=== PATIENT | female | born 1995 | race Caucasian/White ===

== ENCOUNTER 2025-04-16 22:04 | Emergency (ER) | payer OTHER, SELFPAY ==
--- OUTSIDE RECORDS SUMMARY | 2025-04-11 08:40 | XMS_ITS | Encounter Summary ---
Author Organization [employer] Address [address] [address] Care Team Providers Care Caustic Room Operator Name Role Phone Unavailable Primary Care Provider Unavailabl e Reason for Visit * Reason Comments Cough Pharyngitis Encounter Details Date Type Department Care Team (Late st Contact Info) Description 04/11/2025 8:40 AM CDT Office Visit [facility] [address] [place] [phone] [place] [address] [address] [place], [place] [id number] Sore throat; Acute laryngitis; Cough, unspecified type; Nasal congestion Social History Tobacco Use Types Packs/Day Years Used Date Smoking Tobacco: Never Passive Smoke Exposure: Never Smokeless Tobacco: Never Comments No Sex and Gender Information Value Date Recorded Sex Assigned at Not on file Legal Sex Female 8:47 PM CDT Gender Identity Not on file Sexual Orientation Not on file documented as of this encounter Last Filed Vital Signs Vital Sign Reading Time Taken Comments Blood Pressure 103/70 04/11/2025 8:09 AM CDT Pulse 89 04/11/2025 8:09 AM CDT Temperature 36.8 C (98.2 F) 04/11/2025 8:09 AM CDT Respiratory Rate 16 04/11/2025 8:09 AM CDT Oxygen Saturation 96% 04/11/2025 8:09 AM CDT Inhaled Oxygen Concentration - - Weight - - Height - - Body Mass Index - - documented in this encounter Progress Notes * Kiya Burris MD - 04/11/2025 8:40 AM CDT Ana Maria Pascual is a 29 y.o.female presents to the Urgent Care for Cough and Pharyngitis . Cough, sore throat, chest congestion and loss of voice for the past week. Fevers in the beginning. Past Medical History[1] Subject 29 years old female presented today to clinic with concern about a week ago she did had some sore throat and fever for 1 day, fever broke no fever after that, she has runny nose cough congestion she lost her voice. Her cough and postnasal drip are much worse at night, medication she use Mucinex Sudafed icry-ssm-[id number] with no help. 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 Both ear clear, nose mucosa inflamed nasal turbinates bulging Oral cavity pharynx uvula with except postnasal drip there is no petechiae no exudate no redness issign and symptom of inflammation, no submandibular tenderness Neck no enlarged lymph Lungs are clear Cardiac S1-S2 regular Abdomen, extremity, skin she deny any problem any rash WBC with diff pretty within normal her MCH MCHC RDW almost the same as she has a month ago No change Assessment Upper respiratory viral syndrome Viral pharyngitis viral laryngitis Plan Supportive care 1. Rest voice as much as possible no whisper even Flonase for nasal congestion Tessalon Perles for cough worse additional symptom concern question back to the clinic otherwise follow-up protein she agree or see primary doctor [1] No past medical history on file. documented in this encounter Nursing Notes * Lisa Payton RN - 04/11/2025 8:40 AM CDT Ana Maria Pascual is a 29 y.o.female presents to the Urgent Care for Cough and Pharyngitis . Cough, sore throat, chest congestion and loss of voice for the past week. Fevers in the beginning. documented in this encounter Plan of Treatment Not on file documented as of this encounter Visit Diagnoses Diagnosis Sore throat Acute pharyngitis Acute laryngitis Acute laryngitis, without mention of obstruction Cough, unspecified type Nasal congestion Other diseases of nasal cavity and sinuses documented in this encounter
--- OUTSIDE RECORDS SUMMARY | 2025-04-11 09:10 | XMS_ITS | Encounter Summary ---
Author Organization [employer] Address [address] [place] [address] Care Team Providers Care Executive Assistant To President Name Role Phone Unavailable Primary Care Provider Unavailabl e Encounter Details Date Type Department Care Team (Late st Contact Info) Description 04/11/2025 9:10 AM CDT Lab Visit [facility] [address] [place] [phone] Sore throat Social History Tobacco Use Types Packs/Day Years Used Date Smoking Tobacco: Never Passive Smoke Exposure: Never Smokeless Tobacco: Never Comments No Sex and Gender Information Value Date Recorded Sex Assigned at Not on file Legal Sex Female 8:47 PM CDT Gender Identity Not on file Sexual Orientation Not on file documented as of this encounter Plan of Treatment Not on file documented as of this encounter Procedures Procedure Name Priority Date/Time Associated Diagnosis Comments CBC AND DIFFERENTIAL PANEL STAT 04/11/2025 8:44 AM CDT Sore throat COMPLETE BLOOD COUNT-W/DIFF STAT 04/11/2025 8:44 AM CDT Sore throat documented in this encounter Results * (ABNORMAL) Complete Blood Count-W/Diff (04/11/2025 8:44 AM CDT) [facility] WBC 7.7 3.5 - 10.5 x10(9)/L 04/11/2025 8:50 AM CDT [facility] RBC 4.17 3.90 - 5.03 x10(12)/L 04/11/2025 8:50 AM [facility] Hemoglobin 14.3 12.0 - 15.5 g/dL 04/11/2025 8:50 AM [facility] HCT 40.3 34.9 - 44.5 % 04/11/2025 8:50 AM [facility] MCV 96.6 80.0 - 100.0 fL 04/11/2025 8:50 AM [facility] MCH 34.3(H) 27.6 - 33.3 pg 04/11/2025 8:50 AM [facility] MCHC 35.5(H) 31.5 - 35.2 g/dL 04/11/2025 8:50 AM [facility] RDW 11.2(L) 11.9 - 15.5 % 04/11/2025 8:50 AM [facility] Platelets 212 150 - 450 x10(9)/L 04/11/2025 8:50 AM [facility] Neutrophil Absolute 5.6 1.7 - 7.0 10(9)/L 04/11/2025 8:50 AM [facility] Lymphocyte Absolute 1.4 1.0 - 4.8 10(9)/L 04/11/2025 8:50 AM [facility] Monocyte Absolute 0.6 0.2 - 0.9 10(9)/L 04/11/2025 8:50 AM [facility] Eosinophil Absolute 0.1 0.0 - 0.5 10(9)/L 04/11/2025 8:50 AM [facility] Basophil Absolute 0.0 0.0 - 0.3 10(9)/L 04/11/2025 8:50 AM [facility] Immature Granulocyte % 0.0 0.0 - 0.5 % 04/11/2025 8:50 AM [facility] Blood Venipuncture / Unknown 04/11/2025 8:44 AM CDT 04/11/2025 8:44 AM T us Kiya Burris MD LAB_1 Final Result [facility] CLIA: [id number] [address] [place] [address], [facility] documented in this encounter Visit Diagnoses Diagnosis Sore throat Acute pharyngitis documented in this encounter
[2025-04-16 22:12] VITALS: BP 120/81; PULSE 83; RESP 16; TEMP 36.8; O2SAT 99; BMI 19.7
--- NOTE | 2025-04-16 22:12 | CRLHL7_ITS ---
For Patients: As a result of the Century Cures Act, medical imaging exams and procedure reports are released immediately into your electronic medical record. You may view this report before your referring provider. If you have questions, please contact your health care provider. INDICATION: Chest pain, cough. TECHNIQUE: Chest 2 views. COMPARISON: None. FINDINGS: Cardiovascular and mediastinum: Heart size and vasculature are normal in caliber and appearance. Lungs and pleural spaces: No focal consolidation, pleural effusion, or pneumothorax. Bones and soft tissues: Scoliotic curvature of the spine. Otherwise, unremarkable for age. IMPRESSION: No evidence of an acute pulmonary process. Dictated by Rubio Correa MD @ 04/16/2025 11:30:15 PM (Electronically Signed)
--- NOTE | 2025-04-16 22:12 | ED_ITS ---
HPI - SOB/Dyspnea General Time Seen by Provider: 22:13 Date Seen: 04/16/25 Chief Complaint: Cough Stated Complaint: cough/difficulty breathing Time Seen by Provider: 04/16/25 22:12 Source: patient and other (Significant other) Mode of arrival: ambulatory Limitations: no limitations History of Present Illness HPI Narrative: Ana Maria is a previously healthy 29-year-old female who presents the emergency department for evaluation of cough. Patient reports that she has been sick for the past 2 weeks with cough and cold-like symptoms. Patient reports she was seen on Monday it was diagnosed with laryngitis. Patient reports that she recently got her voice back however now reports some worsening symptoms with cough with occasional sputum production, and difficulty sleeping due to the cough. Patient also complains of some shortness of breath due to the cough. Patient denies any fever, chills, chest pain, abdominal pain, no sick contacts. Patient states he has you been taking [id number] medications including Mucinex, Sudafed NyQuil, Tessalon Perles with no improvement of symptoms. Related Data Home Medications ?Medication ?Instructions ?Recorded ?Confirmed No Known Home Medications 04/16/2511/05 Allergies Allergy/AdvReac Type Severity Reaction Status Date / Time No Known Drug Allergies Allergy Verified 04/16/25 22:15 Review of Systems Narrative: Past medical history, past surgical history, medications, allergies, family history, and social history were reviewed with the patient. No additional pertinent items. A medically appropriate review of systems was performed with pertinent positives and negatives noted in HPI, all other systems negative. [facility] Social History Smoking Status: Never smoker Second hand tobacco smoke exposure: No How often do you have a drink containing alcohol: never AUDIT-C Alcohol total score: 0 Non-prescribed substance use: denies use Exam Narrative: Exam Narrative: General: Afebrile, no acute distress HEENT: Normocephalic, atraumatic, conjunctiva normal. MMM Neck: non-tender, supple Cardio: regular rate. regular rhythm Resp: Normal work of breathing, no respiratory distress, lungs clear bilaterally, no wheezing, rhonchi, rales Chest/Back: no visual signs of trauma, no midline tenderness, no CVA tenderness Abdomen: soft, non distension, no tenderness, no peritoneal signs Neuro: alert and fully oriented. CN II-XII grossly intact. Grossly normal strength and sensation in all extremities. MSK: no deformities. Normal range of motion Integumentary/Skin: no rash visualized, normal color Psych: normal affect, normal behavior Const: Vital Signs, click to edit/add: Vital Signs - 24 hr 04/16/25 22:12 Temperature 98.3 F Pulse Rate [Pulse Oximeter] 83 Respiratory Rate 16 Blood Pressure [Ri ght Upper Arm] 120/81 Pulse Oximetry 99 Oxygen Delivery Me thod Room Air Course Vital Signs Vital signs: Initial Vital Signs Temperature 98.3 F 04/16/25 22:12 Temperature Source Temporal Artery Scan 04/16/25 22:12 Pulse Rate 83 04/16/25 22:12 Respiratory Rate 16 04/16/25 22:12 Respiratory Effort Normal, Spontaneous, Non-Labored 04/16/25 22:12 Respiratory Depth Normal 04/16/25 22:12 Respiratory Pattern Normal 04/16/25 22:12 Blood Pressure 120/81 04/16/25 22:12 Blood Pressure Mean 94 04/16/25 22:12 Blood Pressure Position Sitting 04/16/25 22:12 Pulse Oximetry 99 04/16/25 22:12 Oxygen Delivery Method Room Air 04/16/25 22:12 Vital Signs Temperature 98.3 F 04/16/25 22:12 Pulse Rate 83 04/16/25 22:12 Respiratory Rate 16 04/16/25 22:12 Blood Pressure 120/81 04/16/25 22:12 Pulse Oximetry 99 04/16/25 22:12 Oxygen Delivery Method Room Air 04/16/25 22:12 Temperature 98.3 F 04/16/25 22:12 Pulse Rate 83 04/16/25 22:12 Respiratory Rate 16 04/16/25 22:12 Blood Pressure 120/81 04/16/25 22:12 Pulse Oximetry 99 04/16/25 22:12 Oxygen Delivery Method Room Air 04/16/25 22:12 Medications Administered Medications: Discontinued Medications Generic Name Dose Route Start Last Admin Trade Name Freq PRN Reason Stop Dose Admin Albuterol/Ipratropium 1 neb 04/16/25 23:25 04/16/25 23:35 Iprat-Albut 0.5-2.5 Mg/3 Ml Neb IH 04/16/25 23:26 1 neb ONCE ONE Administration Dexamethasone 10 mg 04/16/25 23:26 04/16/25 23:35 Dexamethasone 10 Mg/Ml Pf PO 04/16/25 23:27 10 mg ONCE ONE Administration Guaifenesin/Codeine Phosphate 5 ml 04/16/25 23:25 04/16/25 23:38 Codeine/Guaifenesin 20-200mg/10 Ml Soln PO 04/16/25 23:26 Not Given ONCE ONE Guaifenesin/Codeine Phosphate 10 ml 04/16/25 23:36 04/16/25 23:39 Codeine/Guaifenesin 20-200mg/10 Ml Soln PO 04/16/25 23:37 10 ml ONCE ONE Administration MDM - SOB/Dyspnea MDM Narrative Medical decision making narrative: Ana Maria is a previously healthy 29-year-old female who presents the emergency department for evaluation of cough. Upon arrival patient is nontoxic appearing, afebrile, in distress secondary to feeling unwell. Patient hemodynamically stable vital signs within normal limits. Patient with no tachypnea, no tac hycardia, no hypoxia, no respiratory distress. Differential diagnosis includes but is not limited to viral illness versus COVID/influenza/RSV versus pneumonia versus bronchitis among others. Viral testing negative for COVID/influenza/RSV. I personally reviewed interpreted chest x-ray which is unremarkable with no focal infiltrate, pleural effusion, pneumothorax. I suspect likely viral illness. No emergent indication for antibiotics or admission at this time. Patient was treated with DuoNeb, dexamethasone, guaifenesin codeine in the ED. patient and significant other feel comfortable with discharge home with continued supportive care, close outpatient follow-up, strict return precautions discussed. Patient understands and agrees the plan. Medical Records Attestation: I reviewed the patient's medical records. Lab Data Labs: Lab Results 04/16/25 Range/Units 22:15 SARS-CoV-2 (PCR) Negative SARS-CoV-2 (Negative) Influenza Type A (PCR) Negative PCR FLU A (Negative) Influenza Type B (PCR) Negative PCR FLU B (Negative) RSV (PCR) Negative PCR RSV (Negative) Discharge Plan Discharge Clinical Impression: Cough Patient Disposition: Home, Self-Care Condition: Improved Additional Instructions: Please follow-up with your primary care provider in the next 5-7 days if no improvement of symptoms. Please rest, drink plenty of fluids. Please alternate Tylenol and ibuprofen as needed for fever, pain. You may continue use [id number] cough and cold medications to help with symptoms. Please return to the emergency department if you develop persistent high fever, difficulty breathing, new or worsening symptoms. It was a pleasure to take care of you today. We hope you feel better soon. Prescriptions: No Action No Known Home Medications Follow Up/Referrals: Cecily Mitchell CNM [Primary Care Provider, INSURANCE BUSINESS ANALYST] Stand Alone Forms: [employer] Info Instructions
[2025-04-16 23:10] LABS: PCR FLU A Negative PCR FLU A (Negative); PCR FLU B Negative PCR FLU B (Negative); PCR RSV Negative PCR RSV (Negative); SARS PCR* Negative SARS-CoV-2 (Negative)
--- OUTSIDE RECORDS SUMMARY | 2025-04-16 23:33 | XMS_ITS | Clinical Summary ---
Author Organization [email or web address] Address [address] [place] [id number] Care Team Providers Care Manager Of Disaster Recovery Name Role Phone Pcp, No Primary Care Provider Unavailabl e Allergies Active Allergy Reactions Criticality Noted Date Comments Iodine Rash 09/02/2019 Medications cholecalciferol (Vitamin D) 1,000 unit capsule Take 1 Capsule (1,000 units) by mouth once daily. 0 2 Active ascorbic acid, vitamin C, (VITAMIN C) 1,000 mg tablet Take 1 Tablet (1,000 mg) by mouth once daily. 0 2 Active tretinoin 0.1 % creamIndication s:Acne, unspecified acne type at bedtime. 45 g 3 Active terconazole (TERAZOL-7) 0.4 % vaginal creamIndication s:Vaginal irritation Insert 1 Applicatorful into the vagina at bedtime. 7 g 5 Active SUMAtriptan (IMITREX) 50 mg tabletIndicatio ns:Hx of migraines Take 1 Tablet (50 mg) by mouth 2 times daily if needed for Migraine. Give at minimum 2hrs apart. Max Dose: 200mg per 24hrs. 9 Tablet 5 Active metroNIDAZOLE (METROCREAM) 0.75 % creamIndication s:Acne, unspecified acne type Apply topically to affected area(s) two times daily. 45 g 3 5 Active Active Problems Problem Noted Date Diagnosed Date Pap smear for cervical cancer screening 12/13/19 23 Overview (02/17/2023): 12/2022 NIL/HPV negative. Plan: Pap/HPV due 12/2027. Acne 10/19/2017 Periodic headache syndrome 01/11/2017 Immunizations Immunization Administration Dates Next Due DTaP 08/28/2002,11/03/1998 DTaP-HIB (TriHIBIT) 02/11/1998,1997,1997 Hepatitis A (Peds) 12/04/2007,05/25/2007 Hepatitis B (Peds) 05/06/1998,1997, 998 Hib Conjugate, Unspecified 1997 Human Papilloma Virus Vaccine 03/30/2011, 011,09/22/2010 Inactivated Polio Vaccine 08/28/2002 Influenza, IIV4 05/17/2020, 9,08/08/2018,05/28 MENINGOCOCCAL VACCINE 2 VIAL [id number] (MENVEO) 02/05/2014 MMR 08/28/2002,11/03/1998 Meningococcal B 02/26/2016,01/12/2016 Meningococcal Vaccine (Menactra) 08/12/2009 Oral Polio Vaccine 1997,1997 Polio Virus, Unspecified 11/03/1998 Tdap 06/17/2020,08/12/2009 Varicella Vaccine 11/03/1998 Family History Medical History Relation Name Comments Hyperlipidemia Father Hypertension Father Cancer-breast Mother estrogen posit julieth Relation Name Status Comments Father Mother Social History Tobacco Use Types Packs/Day Years Used Date Smoking Tobacco: Never Smokeless Tobacco: Never Alcohol Use Standard Drinks/Week Comments Not Currently 0 (1 standard drink = 0.6 oz pur e alcohol) rare PHQ-2 Answer Date Recorded PHQ-2 TOTAL SCORE 0 09/25/2024 Social Connections Answer Date Recorded Do you often feel lonely or isolated from those around you? 0 10/01/2024 Financial Resource Strain Answer Date R ecorded Difficulty of Paying Living Expenses 3 10/01/2024 Difficulty of Paying Living Expenses Not on file 10/01/2024 Food Insecurity Answer Date Recorded Do you worry your food will run out before you are able to buy more? 1 10/01/2024 Transportation Needs Answer Date Record ed Does lack of transportation keep you from medica l appointments? 1 10/01/2024 Does lack of transportation keep you from work, meetings or getting things that you need? 1 10/01/2024 Housing Stability Answer Date Recorded What is your housing situation today? 1 10/01/2024 Utilities Answer Date Recorded Do you have trouble paying f or utilities (for example, heat, electricity, water, phone)? 1 10/01/2024 Comments No Sex and Gender Information Value Date Recorded Sex Assigned at Not on file Legal Sex Female 7:58 AM BRIDGE ENGINEER Gender Identity Not on file Sexual Orientation Not on file Obstetrics History Para Term AB IAB SAB Ectopic Multiple Livin g Live Births 0 0 0 0 0 0 0 0 0 0 0 Last Filed Vital Signs Vital Sign Reading Time Taken Comments Blood Pressure 106/72 10/02/2024 12:54 PM BRIDGE ENGINEER Pulse 84 10/02/2024 12:54 PM BRIDGE ENGINEER Temperature 36.9 C (98.4 F) 04/15/2023 12:12 PM CDT Respiratory Rate 16 04/15/2023 12:12 PM CDT Oxygen Saturation 100% 04/15/2023 12:12 PM CDT Inhaled Oxygen Concentration - - Weight 57.4 kg (126 lb 9.6 oz) 10/02/2024 12:54 PM BRIDGE ENGINEER Height 163 cm (5' 4.17) 09/25/2024 10:34 AM BRIDGE ENGINEER Body Mass Index 21.61 09/25/2024 10:34 AM BRIDGE ENGINEER Plan of Treatment Health Maintenance Due Date Last Done Comments HIV for age 15-65 2012 Hepatitis C screening for age 18-79 2015 COVID-19 vaccine series ( season) 2025 04/13/2021, 03/23/2021 Influenza Vaccine (#1) 2025 , 06/04/2019, 08/08/2018, Additional history exists BMI (ht and wt on same day) for age 18+ 09/25/2025 09/25/2024, 01/10/2023, 01/03/2022, Additional history exists Depression screening for age 12+ 09/25/2025 09/25/2024, 01/10/2023, 01/03/2022, Additional history exists Pap test for age 21-65 01/11/2028 , 01/10/2023, 08/13/2019 Tetanus booster 06/17/2030 06/17/2020, 08/12/2009 RSV vaccine for adults or (1 - 1-dose 75+ series) 2072 Hepatitis B series for 19+ Completed 05/06, 1997, 1997 Pneumococcal series for age 6-49 Aged Out No longer eligible based on patient's age to complete this topic Procedures Procedure Name Priority Date/Time Associated Diagnosis Comments HPV HIGH RISK Routine 01/10/2023 11:50 AM CDT Pap smear for cervical cancer screening from Last 3 Months or Most Recently Relevant to Health Maintenance Results * HPV HIGH RISK (01/10/2023 11:50 AM CDT) TYPE 16 Negative Negative 01/13/2023 2:45 PM CDT [facility] TYPE 18 Negative Negative 01/13/2023 2:45 PM CDT [facility] OTHER HIGH RISK TYPES Negative Negative 01/13/2023 2:45 PM CDT [facility] Other (Cervical) Non-Blood / Unknown 01/10/2023 11:50 AM CDT 01/11/2023 2:58 PM CDT Narrative [facility] - 01/13/2023 2:45 PM CDT HPV types 16, 18, 31, 33, 35, 39, 45, 51, 52, 56, 58, 59, 66 and 68 DNA were undetectable or below the pre-set threshold. Methodology: Miguel Jhon 4800 HPV Test us Cecily Mitchell CNM MICROBIOLOGY Final Result [facility] [address] [place] [address], [place] from Last 3 Months or Most Recently Relevant to Health Maintenance [place] [address] Care Teams Manager Of Disaster Recovery Relationship Specialty Start Date End Date Pcp, No . PCP - General 06/14/24
--- OUTSIDE RECORDS SUMMARY | 2025-04-16 23:33 | XMS_ITS | Clinical Summary ---
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 Pain in joint, lower leg 04/21/2011 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 Pain in joint, lower leg 08/09/2010 Social History Tobacco Use Types Packs/Day Years Used Date Smoking Tobacco: Never Alcohol Use Standard Drinks/Week Comments No 0 (1 standard drink = 0.6 oz pur e alcohol) Adolescent Education Answer Date Record ed Getting School Help Needed Not on file 05/20 Comments No Sex and Gender Information Value Date Recorded Sex Assigned at Not on file Legal Sex Female 3:34 AM TREATING PLANT PUMPER Gender Identity Not on file Sexual Orientation Not on file Last Filed Vital Signs Vital Sign Reading Time Taken Comments Blood Pressure 130/86 09/21/2021 10:47 PM TREATING PLANT PUMPER Pulse 108 09/21/2021 10:47 PM TREATING PLANT PUMPER Temperature 36.3 C (97.4 F) 09/21/2021 10:47 PM TREATING PLANT PUMPER Respiratory Rate 16 09/21/2021 10:4 7 PM TREATING PLANT PUMPER Oxygen Saturation 99% 09/21/2021 10: 47 PM TREATING PLANT PUMPER Inhaled Oxygen Concentration - - Weight 52.5 kg (115 lb 11.9 oz) 09/17/2017 3:48 AM TREATING PLANT PUMPER Height - - Body Mass Index - - Plan of Treatment Not on file Insurance [facility] Care Teams Nursing Informatics Clinical Analyst Relationship Specialty Start Date End Date Cecily Mitchell CNM PCP - General Midwives 09/21/21
--- OUTSIDE RECORDS SUMMARY | 2025-04-16 23:33 | XMS_ITS | Clinical Summary ---
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 [facility] Allergies No known active allergies Medications benzonatate (TESSALON) 100 MG capsuleIndicatio ns:Cough, unspecified type Take 1-2 Capsules (100-200 mg) by mouth three times a day as needed for Cough for up to 10 days. 21 Capsule 5 04/21/20 25 Active fluticasone propionate (FLONASE) 50 MCG/ACT nasal solutionIndicati ons:Nasal congestion Place 2 Sprays into both nostrils daily. 16 g 2 5 Active Active Problems No known active problems Encounters Date Type Department Care Team Description 04/11/2025 9:10 AM CDT Lab Visit [facility] [address] [place] [address] Sore throat 04/11/2025 8:40 AM CDT Office Visit [facility] [address] [facility] [id number] [place] [phone] Kiya Burris MD Sore throat; Acute laryngitis; Cough, unspecified type; Nasal congestion 02/18/2025 4:40 PM CDT Ancillary Procedure [facility] [place] [address] [address] Scan [address] [place] [address] Jose Jaimes PA-C Abdominal pain, unspecified abdominal location 02/18/2025 4:20 PM CDT Office Visit [facility] [address] [place] [address] Jose Jaimes PA-C Abdominal pain, unspecified abdominal location 02/18/2025 4:00 PM CDT Lab Visit [facility] [address] [place] [address] Abdominal pain, unspecified abdominal location from Last 3 Months Social History Tobacco Use Types Packs/Day Years Used Date Smoking Tobacco: Never Passive Smoke Exposure: Never Smokeless Tobacco: Never Tobacco Cessation:Counseling Given: Not Answered Comments No Sex and Gender Information Value [...] Mass Index - - Plan of Treatment Health Maintenance Due Date Last Done Comments Cervical Cancer Screening Due 1997 Hep C Screening (Preventive Services) 1997 HIV Screening (Preventive Services) 2013 Adult Preventive Visit 2015 HepB Vaccine (1) 2016 COVID-19 Vaccine ( season) 2024 04/13/2021, 03/23/2021 Influenza Vaccine (#1) 2025 , 05/13/2020, 06/04/2019, Additional history exists DTaP/Tdap/Td Vaccine (8 - Tdap) 06/17/2030 06/17/2020, 08/12/2009, 08/28/2002, Additional history exists Zoster/Shingles Vaccine (1 of 2) 2047 Hib Vaccine Aged Out 02/11/1998, 11/13, 1997, Additional history exists No longer eligible based on patient's age to complete this topic IPV (Polio) Vaccine Completed 08/28/2002, 11/03/1998, 1997, Additional history exists HepA Vaccine Completed 12/04/2007, 05/25/2007 HPV Vaccine Completed 03/30/2011, 11/12, 09/22/2010 MCV4 Vaccine Completed 02/05/2014, 08/12/2009 Meningococcal B Vaccine Completed 02/26/2016, 01/11 Pneumococcal Vaccine Aged Out No long er eligible based on patient's age to complete this topic Procedures Procedure Name Priority Date/Time Associated Diagnosis Comments COMPLETE BLOOD COUNT-W/DIFF STAT 04/11/2025 8:44 AM CDT Sore throat CBC AND DIFFERENTIAL PANEL STAT 04/11/2025 8:44 AM CDT Sore throat UA MICRO STAT 02/18/2025 4:16 PM CDT Abdominal pain, unspecified abdominal location UA WITH MICROSCOPIC STAT 02/18/2025 4 :16 PM CDT Abdominal pain, unspecified abdominal location COMPLETE BLOOD COUNT-W/DIFF STAT 02/18/2025 4:04 PM CDT Abdominal pain, unspecified abdominal location LIPASE STAT 02/18/2025 4:04 PM CDT Abdominal pain, unspecified abdominal location COMPREHENSIVE METABOLIC PANEL STAT 02/18/2025 4:04 PM CDT Abdominal pain, unspecified abdominal location CBC AND DIFFERENTIAL PANEL STAT 02/18/2025 4:04 PM CDT Abdominal pain, unspecified abdominal location CT ABD PELVIS W IV CONT STAT 02/18/2025 3:48 PM CDT Abdominal pain, unspecified abdominal location from Last 3 Months Results * (ABNORMAL) Complete Blood Count-W/Diff (04/11/2025 8:44 AM CDT) Only the most recent of2 resultswithin the time period is included. WBC 7.7 3.5 - 10.5 x10(9)/L 04/11/2025 8:50 AM [facility] RBC 4.17 3.90 - 5.03 x10(12)/L 04/11/2025 8:50 AM [facility] Hemoglobin 14.3 12.0 - 15.5 g/dL 04/11/2025 8:50 AM [facility] HCT 40.3 34.9 - 44.5 % 04/11/2025 8:50 AM [facility] MCV 96.6 80.0 - 100.0 fL 04/11/2025 8:50 AM [facility] MCH 34.3(H) 27.6 - 33.3 pg 04/11/2025 8:50 AM [facility] MCHC 35.5(H) 31.5 - 35.2 g/dL 04/11/2025 8:50 AM [facility] RDW 11.2(L) 11.9 - 15.5 % 04/11/2025 8:50 AM [facility] Platelets 212 150 - 450 x10(9)/L 04/11/2025 8:50 AM [facility] Neutrophil Absolute 5.6 1.7 - 7.0 10(9)/L 04/11/2025 8:50 AM [facility] Lymphocyte Absolute 1.4 1.0 - 4.8 10(9)/L 04/11/2025 8:50 AM [facility] Monocyte Absolute 0.6 0.2 - 0.9 10(9)/L 04/11/2025 8:50 AM [facility] Eosinophil Absolute 0.1 0.0 - 0.5 10(9)/L 04/11/2025 8:50 AM [facility] Basophil Absolute 0.0 0.0 - 0.3 10(9)/L 04/11/2025 8:50 AM [facility] Immature Granulocyte % 0.0 0.0 - 0.5 % 04/11/2025 8:50 AM [facility] Blood Venipuncture / Unknown 04/11/2025 8:44 AM CDT 04/11/2025 8:44 AM CDT us Kiya Burris MD LAB_1 Final Result [facility] CLIA: [id number] [address] [place] [address], [facility] * (ABNORMAL) UA with Microscopic: Clean Catch (02/18/2025 4:16 PM CDT) Color Straw 02/18/2025 4:44 PM [facility] Clarity Clear Clear 02/18/2025 4:44 PM [facility] Specific [place] <=1.005(A) 1.005 - 1.030 02/18/2025 4:44 PM [facility] pH 6.0 5.0 - 8.0 02/18/2025 4:44 PM [facility] Protein Negative Neg/Trace mg/dL 02/18/2025 4:44 PM [facility] Glucose Negative Negative mg/dL 02/18/2025 4:44 PM [facility] Ketones Negative Negative mg/dL 02/18/2025 4:44 PM [facility] Urobilinogen 0.2 <2.0 EU/dL 02/18/2025 4:44 PM [facility] Bilirubin Negative Negative 02/18/2025 4:44 PM [facility] Blood Negative Neg/Trace 02/18/2025 4:44 PM [facility] Nitrite Negative Negative 02/18/2025 4:44 PM [facility] Leukocyte Esterase Negative Negative 02/18/2025 4:44 PM [facility] Source Clean Catch 02/18/2025 4:44 PM [facility] Urine URINE SPECIMEN COLLECTION, CLEAN CATCH / Unknown Non-blood Collection / Unknown 02/18/2025 4:16 PM CDT 02/18/2025 4:16 PM CDT Jose FRY-C LAB_1 Final Resul t Performing Organization Address [facility] de Phone Number [facility] [address] [place] [address] * (ABNORMAL) Urine Microscopic Evaluation: Clean Catch (02/18/2025 4:16 PM CDT) Red Blood Cells 0-3 0 - 3 /HPF 02/18/2025 4:44 PM CDT [facility] White Blood Cells 0-5 0 - 5 /HPF 02/18/2025 4:44 PM CDT [facility] Bacteria Occasional (A) None Seen /HPF 02/18/2025 4:44 PM CDT [facility] Squamous Epithelial Cells Few None Seen, Occasiona l, Few /HPF 02/18/2025 4:44 PM CDT [facility] Urine URINE SPECIMEN COLLECTION, CLEAN CATCH / Unknown Non-blood Collection / Unknown 02/18/2025 4:16 PM CDT 02/18/2025 4:16 PM CDT Jose FRY-C LAB_1 Final Resul t Performing Organization Address [facility] de Phone Number [facility] [id number] [place] [phone] * (ABNORMAL) Comp Metabolic Panel (02/18/2025 4:04 PM CDT) Sodium 135(L) 136 - 145 mmol/L 02/18/2025 4:27 PM CDT [facility] Potassium 4.2 3.5 - 5.1 mmol/L 02/18/2025 4:27 PM CDT [facility] Chloride 102 98 - 109 mmol/L 02/18/2025 4:27 PM CDT [facility] CO2 24 20 - 29 mmol/L 02/18/2025 4:27 PM CDT [facility] Anion Gap 9 6 - 16 mmol/L 02/18/2025 4:27 PM [facility] Calcium 9.0 8.4 - 10.4 mg/dL 02/18/2025 4:27 PM [facility] BUN 16 7 - 26 mg/dL 02/18/2025 4:27 PM [facility] Creatinine 0.75 0.55 - 1.02 mg/dL 02/18/2025 4:27 PM [facility] Alkaline Phosphatase 40 40 - 150 U/L 02/18/2025 4:27 PM [facility] AST (SGOT) 23 16 - 46 U/L 02/18/2025 4:27 PM [facility] ALT (SGPT) 20 0 - 55 U/L 02/18/2025 4:27 PM [facility] Bilirubin, Total 0.2 0.2 - 1.2 mg/dL 02/18/2025 4:27 PM [facility] Protein, Total 7.2 6.4 - 8.3 g/dL 02/18/2025 4:27 PM [facility] Albumin 4.3 3.5 - 5.0 g/dL 02/18/2025 4:27 PM [facility] Glucose 88 70 - 100 mg/dL 02/18/2025 4:27 PM [facility] Comment:The given reference range is for the fasting state. Non-fasting reference range for glucose is 70 - 180 mg/dL. GFR, Estimated >60 >60 mL/min/1.7 3m2 02/18/2025 4:27 PM [facility] Hours Fasting 0.0 8 - 12 Hours 02/18/2025 4:27 PM [facility] Comment:Patient has indicate d a non-fasting status. Blood Venipuncture / Unknown 02/18/2025 4:04 PM CDT 02/18/2025 4:05 PM CDT Jose Jaimes PA-C LAB_1 Final Resul t [facility] [address] [place] [address], [facility] * Lipase (02/18/2025 4:04 PM CDT) Lipase 35 8 - 78 U/L 02/18/2025 4:27 PM CDT [facility] Blood Venipuncture / Unknown 02/18/2025 4:04 PM CDT 02/18/2025 4:05 PM CDT us Jose Maldonado Maldonado Jaimes PA-C LAB_1 Final Resul t [facility] [address] [place] [address] * CT Abd Pelvis W IV Cont (02/18/2025 3:48 PM CDT) Anatomical Region Laterality Modality Abdomen, Pelvis Computed Tomogra phy Impressions 02/18/2025 4:06 PM CDT 1. There is a right corpus luteum with a small amount of free fluid in the pelvis. This is likely physiologic.. Signed by: Camilo Marquez 02/18/2025 4:06 PM Narrative 02/18/2025 4:06 PM CDT EXAM: CT ABD PELVIS W IV CONT INDICATION: left lower quadrant pain COMPARISON: None. TECHNIQUE: Images were obtained through the abdomen and pelvis following the administration of 100 mL IOHEXOL 350 MG/ML IV SOLN IV contrast. FINDINGS: LOWER CHEST: Unremarkable. LIVER: Unremarkable. GALLBLADDER AND BILIARY TREE: Unremarkable. No intrahepatic or extrahepatic biliary ductal dilation. PANCREAS: Unremarkable. SPLEEN: Unremarkable. ADRENALS: Unremarkable. KIDNEYS, URETERS, AND BLADDER: Unremarkable. No hydronephrosis. VESSELS: No abdominal aortic aneurysm. BOWEL: Unremarkable. No inflammatory changes or obstruction. No evidence for appendicitis. REPRODUCTIVE ORGANS: Right corpus luteum. The left adnexa and uterus are unremarkable. MESENTERY/PERITONEUM: Small amount of free fluid in the pelvis. No enlarged mesenteric lymph nodes. No ascites or free air. No focal fluid collection. RETROPERITONEUM: No adenopathy. ABDOMINAL WALL/SOFT TISSUES: Unremarkable. BONES: Unremarkable. Procedure Note Camilo Marquez MD - 02/18/2025 EXAM: CT ABD PELVIS W IV CONT INDICATION: left lower quadrant pain COMPARISON: None. TECHNIQUE: Images were obtained through the abdomen and pelvis following theadministration of 100 mL IOHEXOL 350 MG/ML IV SOLN IV contrast. FINDINGS: LOWER CHEST: Unremarkable. LIVER: Unremarkable. GALLBLADDER AND BILIARY TREE: Unremarkable. No intrahepatic orextrahepatic biliary ductal dilation. PANCREAS: Unremarkable. SPLEEN: Unremarkable. ADRENALS: Unremarkable. KIDNEYS, URETERS, AND BLADDER: Unremarkable. No hydronephrosis. VESSELS: No abdominal aortic aneurysm. BOWEL: Unremarkable. No inflammatory changes or obstruction. No evidencefor appendicitis. REPRODUCTIVE ORGANS: Right corpus luteum. The left adnexa and uterus areunremarkable. MESENTERY/PERITONEUM: Small amount of free fluid in the pelvis. Noenlarged mesenteric lymph nodes. No ascites or free air. No focal fluidcollection. RETROPERITONEUM: No adenopathy. ABDOMINAL WALL/SOFT TISSUES: Unremarkable. BONES: Unremarkable. IMPRESSION 1. There is a right corpus luteum with a small amount of free fluid in thepelvis. This is likely physiologic.. Signed by: Camilo Marquez 02/18/2025 4:06 PM Jose Jaimes PA-C RAD CT Final Resul t from Last 3 Months Insurance [employer] WITH MEDICA
[2025-04-16] MEDS: DEXAMETHASONE 10 MG/ML PF PO (23:35)
[2025-04-16] MEDS: IPRAT-ALBUT 0.5-2.5 MG/3 ML NEB 1 NEB IH (23:35)
[2025-04-16] MEDS: CODEINE/GUAIFENESIN 20-200MG/10 ML SOLN PO (23:39)
[2025-04-16 23:55] VITALS: BP 118/70; PULSE 79; RESP 16; TEMP 36.8; O2SAT 99
== END 2025-04-16 23:56 | disposition home or self-care (01) ==
PROVIDERS: Emergency Provider Emergency Medicine; PCP Obstetrics & Gynecology
DX: R05.9 Cough, unspecified (principal)
CPT/HCPCS: 71046; 87631; 99283; 99284; 99285; A9270; J1100